=== PATIENT | female | born 1945 | race Caucasian/White ===

== ENCOUNTER 2023-10-13 13:06 | Outpatient (CLI) | payer MEDICARE, MEDICAID | END 2023-10-13 13:07 | disposition critical access hospital (66) | LOC: EMS 13:06 | DX: H53.8 Other visual disturbances (principal); R42 Dizziness and giddiness | CPT/HCPCS: A0425; A0427 ==

== ENCOUNTER 2023-10-13 13:31 | Emergency (ER) | payer MEDICARE, MEDICAID ==
--- NOTE | 2023-10-13 13:41 | ED Physician Documentation ---
History of Present Illness - Stated complaint Stated Complaint: BLURRED VISION - History obtained from History obtained from: Patient, EMS - Additonal information Additional information: 78-year-old woman who is generally healthy is brought in by ambulance. She was in her usual state of health reading the paper about half an hour ago and started to feel slightly odd. She feels better now. No chest pain or trouble breathing but she is "more conscious of her breathing." She was noted to be hypertensive in route. She had a similar episode a few months ago leading to an emergency department visit at another hospital where she was also noted to be hypertensive. She states when it started this morning she was feeling a little upset because the dog was running [id number] and then her daughter had to come talk to her. PD PAST MEDICAL HISTORY - Present Medications Home Medications: Ambulatory Orders Medication Instructions Recorded Confirmed No Known Home Medications 10/13/23 10/13/23 - Allergies Allergies/Adverse Reactions: Allergies Allergy/AdvReac Type Severity Reaction Status Date / Time Anesthetics - Amide Type - Allergy Unknown Verified 10/13/23 13:47 Select A PD ED PE NORMAL - Vitals Vital signs reviewed: Yes - General General: Alert and oriented X 3, No acute distress - HEENT HEENT: PERRL, EOMI - Neck Neck: Supple, no meningeal sign, No bony TTP - Cardiac Cardiac: RRR, No murmur - Respiratory Respiratory: No respiratory distress, Clear bilaterally - Abdomen Abdomen: Non tender - Back Back: No CVA TTP, No spinal TTP - Derm Derm: Normal color, Warm and dry - Extremities Extremities: No edema, No calf tenderness / cord - Neuro Neuro: Alert and oriented X 3, Normal speech Results - Vitals Vitals: Vital Signs - 24 hr 10/13/23 13:44 Temperature 36.4 C L Heart Rate 70 Respiratory 12 Rate Blood Pressure 156/87 H O2 Saturation 100 Oxygen O2 Source Room air - EKG (time done) 1406 EKG releavant findings:: EKG personally interpreted by author of this note. Relevant findings are: Rate: Rate (enter#) (71) Rhythm: NSR Intervals: RBBB, Other (LAFB) QRS: LVH Ischemia: Normal ST segments - Labs Labs: Laboratory Tests 10/13/23 10/13/23 13:55 13:55 WBC 5.9 RBC 4.57 Hgb 13.9 Hct 42.8 MCV 93.7 MCH 30.4 MCHC 32.5 RDW 12.6 Plt Count 308 MPV 9.2 Neut # (Auto) 4.0 Lymph # (Auto) 1.4 L [place] # (Auto) 0.3 Eos # (Auto) 0.1 Baso # (Auto) 0.1 Absolute Nucleated RBC 0.00 Nucleated RBC % 0.0 Sodium 137 Potassium 3.9 Chloride 106 Carbon Dioxide 24 Anion Gap 7.0 BUN 12 Creatinine 0.7 Estimated GFR (MDRD) 81 L Glucose 104 Calcium 10.4 H Total Bilirubin 0.4 AST 14 ALT 9 L Alkaline Phosphatase 65 Total Protein 6.7 Albumin 4.5 Globulin 2.2 Albumin/Globulin Ratio 2.0 PD Medical Decision Making - ED course ED course: 78-year-old woman presents after an episode of feeling odd with elevated blood pressure reading. Now feeling better and blood pressure on arrival was modestly elevated. Blood pressure came down to 144/76 without specific intervention so would not start treatment today per se, CBC, CMP normal. EKG showing RBBB/LAFB/possible LVH. Discussed with patient and given a copy of EKG and advised to follow-up with PCP for discussion. Departure - Departure Disposition: 01 Home, Self Care Clinical Impression: Elevated blood pressure reading Condition: Good Record reviewed to determine appropriate education?: Yes Instructions: ED Hypertension Poss Comments: Your blood pressure came down to close to normal here without specific intervention. Lab work was normal, and EKG did show a right bundle branch block, left posterior fascicular block, and possible LVH. Please follow-up with your primary care physician for discussion of this. Return for new or worsening symptoms.
[2023-10-13 14:00] LABS: BASOPHILS # (AUTO) 0.1 10^3/uL (0.0-0.1); BASOPHILS % (AUTO) 1.2 %; EOSINOPHILS # (AUTO) 0.1 10^3/uL (0.0-0.7); EOSINOPHILS % (AUTO) 2.4 %; HCT - HEMATOCRIT 42.8 % (37.0-47.0); HGB - HEMOGLOBIN 13.9 g/dL (12.0-16.0); LYMPHOCYTES # (AUTO) 1.4 10^3/uL (1.5-3.5); LYMPHOCYTES % (AUTO) 23.2 %; MEAN CORPUSCULAR HEMOGLOBIN 30.4 pg (27.0-31.0); MEAN CORPUSCULAR HGB CONC 32.5 g/dL (32.0-36.0); MEAN CORPUSCULAR VOLUME 93.7 fL (81.0-99.0); MEAN PLATELET VOLUME 9.2 fL (7.9-10.8); MONOCYTES # (AUTO) 0.3 10^3/uL (0.0-1.0); MONOCYTES % (AUTO) 5.8 %; NEUTROPHILS % (AUTO) 67.2 %; PLT - PLATELET COUNT 308 10^3/uL (130-450); RED BLOOD COUNT 4.57 10^6/uL (4.20-5.40); RED CELL DISTRIBUTION WIDTH 12.6 % (12.0-15.0); WHITE BLOOD COUNT 5.9 x10^3/uL (4.8-10.8)
[2023-10-13 14:21] LABS: ALBUMIN 4.5 g/dL (3.2-5.5); BILIRUBIN,TOTAL 0.4 mg/dL (0.2-1.0); CALCIUM 10.4 mg/dL (8.5-10.3); CREATININE 0.7 mg/dL (0.6-1.3); POTASSIUM 3.9 mmol/L (3.5-4.5); TOTAL PROTEIN 6.7 g/dL (6.4-8.9)
[2023-10-13 15:10] VITALS: BP 144/75; O2SAT 99
== END 2023-10-13 15:02 | disposition home or self-care (01) ==
LOC: EDUNIT# → ED 13:31
DX: R03.0 Elevated blood-pressure reading, without diagnosis of hypertension (principal); I45.10 Unspecified right bundle-branch block; I44.5 Left posterior fascicular block
CPT/HCPCS: 36415; 80053; 85025; 93005; 99283

== ENCOUNTER 2023-10-20 14:07 | Emergency (ER) | payer MEDICARE, MEDICAID ==
[2023-10-20 14:27] VITALS: BP 160/90; O2SAT 100
--- NOTE | 2023-10-20 16:11 | XRAY Report ---
PROCEDURE: Finger(s) LT INDICATIONS: Trauma TECHNIQUE: AP hand, 2 views of the third finger(s) acquired. COMPARISON: None. FINDINGS: Bones: No fractures or dislocations. No suspicious bony lesions. Focal degenerative change is seen involving the first carpometacarpal joint, with milder degenerative changes seen elsewhere. Soft tissues: Soft tissue swelling is seen of the third finger. IMPRESSION: Third finger soft tissue swelling, without an acute bony abnormality seen by plain film. There are underlying degenerative changes seen, which are worst involving the first carpometacarpal j oint. Reviewed by: Avila Suarez MD on 10/20/2023 3:10 PM [facility] Approved by: Avila Suarez MD on 10/20/2023 3:10 PM [facility] Station ID: [id number]
--- NOTE | 2023-10-20 16:30 | ED Physician Documentation ---
PD HPI UPPER EXT INJURY - Stated complaint Stated Complaint: INJURED FINGER - Chief complaint Chief Complaint: Ext Problem - Additonal information Additional information: she developed painful swelling that was atraumatic of the left third finger yesterday and was worse this morning with more pain. 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 : None HEENT: None Psych: None Musculoskeletal: None Derm: None - Past Surgical History Past Surgical History: No - Present Medications Home Medications: Ambulatory Orders Medication Instructions Recorded Confirmed Amox/Clav 875/125 [Augmentin] 1 each PO Q12H #14 tablet 10/20/23 - Allergies Allergies/Adverse Reactions: Allergies Allergy/AdvReac Type Severity Reaction Status Date / Time Anesthetics - Amide Type - Allergy Unknown Verified 10/20/23 14:18 Select A - Social History Does the pt smoke?: No Smoking Status: Never smoker Does the pt drink ETOH?: No Does the pt have substance abuse?: No - Immunizations Immunizations are current?: Yes PD ED PE NORMAL - Vitals Vital signs reviewed: Yes - General General: Alert and oriented X 3, No acute distress - Extremities Extremities: Other (She has a paronychia of the left third finger with swelling and cellulitis.) - Neuro Neuro: Alert and oriented X 3, Normal speech Results - Vitals Vitals: Vital Signs - 24 hr 10/20/23 14:18 Temperature 36.8 C Heart Rate 70 Respiratory 16 Rate Blood Pressure 160/90 H O2 Saturation 100 Oxygen O2 Source Room air Procedures - General procedure General procedure: After verbal informed consent the left third finger was blocked using buffered lidocaine in standard dorsal fashion with excellent anesthesia, then a small incision was made into the paronychia and free-flowing pus returned. Departure - Departure Disposition: Home, Self Care Clinical Impression: Paronychia Condition: Good Record reviewed to determine appropriate education?: Yes Instructions: ED Fingernail Infec Prescriptions: Amox/Clav 875/125 [Augmentin] 1 each PO Q12H #14 tablet Comments: Soak it a few times a day in warm water. Return for new or worsening symptoms or if the pus reaccumulates. Forms: PCP List
[2023-10-20] MEDS ORDERED: BUFFERED LIDOCAINE 10 ML SYRINGE SUBQ STA (16:33)
[2023-10-20] MEDS ORDERED: AMOX/CLAV 875 MG/125 MG TABLET PO STA (16:33)
== END 2023-10-20 16:57 | disposition home or self-care (01) ==
LOC: ED 14:07
DX: L03.012 Cellulitis of left finger (principal)
CPT/HCPCS: 10060; 73140; 99283; A9270